=== PATIENT | female | born 1950 | race Caucasian/White ===

== ENCOUNTER 2016-05-12 10:49 | Inpatient (IN) | payer BC, OTHER ==
[~2016-05-12] VITALS: Ht 167.6 cm; Wt 74.8 kg
[2016-05-12 13:04] LABS: *AMPHETAMINE, URINE NEGATIVE (NEGATIVE); *BARBITURATE, URINE NEGATIVE (NEGATIVE); *CANNABINOID, URINE NEGATIVE (NEGATIVE); *COCCAINE, URINE NEGATIVE (NEGATIVE); *OPIATE, URINE NEGATIVE (NEGATIVE); *PHENCYCLIDINE SCREEN,URINE NEGATIVE (NEGATIVE)
[2016-05-12] MEDS ORDERED: LOPERAMIDE HCL 2 MG CAPSULE PO PRN ×2 (13:30)
[2016-05-12] MEDS ORDERED: THIAMINE HCL 200 MG/2 ML VIAL IM ONE (13:30)
[2016-05-12] MEDS ORDERED: DICYCLOMINE HCL 20 MG TABLET PO PRN (13:30)
[2016-05-12] MEDS ORDERED: LORAZEPAM 2 MG/1 ML VIAL IM PRN (13:30)
[2016-05-12] MEDS ORDERED: PROMETHAZINE HCL 25 MG/1 ML VIAL IM PRN (13:30)
[2016-05-12] MEDS ORDERED: IBUPROFEN 400 MG TABLET PO PRN (13:30)
[2016-05-12] MEDS ORDERED: LORAZEPAM 1 MG TABLET PO PRN ×2 (13:30)
[2016-05-12] MEDS ORDERED: MAG HYDROX/AL HYDROX/SIMETH 30 ML LIQUID UDC PO PRN (13:30)
[2016-05-12] MEDS ORDERED: MAGNESIUM HYDROXIDE 30 ML LIQUID UDC PO PRN (13:30)
[2016-05-12] MEDS ORDERED: MIRALAX 17 GM POWD.PACK PO PRN (13:30)
[2016-05-12] MEDS ORDERED: ONDANSETRON ODT 4 MG TAB.RAPDIS SL PRN (13:30)
[2016-05-12] MEDS ORDERED: diphenhydrAMINE 50 MG CAPSULE PO PRN (13:30)
[2016-05-12] MEDS ORDERED: GABA-534 PO (13:48)
[2016-05-12] MEDS ORDERED: PARO30TA3 PO (13:49)
[2016-05-12] MEDS ORDERED: LOSA1TAB39 PO (13:49)
[2016-05-12] MEDS ORDERED: SENN-18 PO (13:50)
[2016-05-12] MEDS ORDERED: NAPR220T66 PO (13:51)
[2016-05-12] MEDS: FOLIC ACID 1 MG TABLET PO SCH (13:52)
[2016-05-12] MEDS: HYDROXYZINE PAMOATE 25 MG CAPSULE PO PRN (13:52)
[2016-05-12] MEDS: CLONIDINE HCL 0.1 MG TABLET PO PRN (13:52)
--- NOTE | 2016-05-12 13:52 | NUR ---
PRN Medication Administered PRN Vistaril and Clonidine for CIWA 8 and BP of 179/120 and HR 85
[2016-05-12] MEDS ORDERED: SIME125C81 PO (13:57)
--- NOTE | 2016-05-12 14:00 | NUR ---
Admission Note VS: BP: 175/120 HR:85, SpO2: 98%, RR: 16, Temp: 98.8 Pain: 3/10 bilateral foot pain Height: 5'6" Weight: 165 LB Allergies: AARON Pt is a 65 y/o female admitted to [facility] on 05/12/16 at 1400. Pt is under the care of Dr. Grant for ETOH dependence. Pt denies suicidal and homicidal ideations at this time. Pt denies being hospitalized in the past 30 days. Pt denies Chest Pain and SOB. Pt reports using Gabapentin 600mg TID, Losartan 100-25mg 1 tab daily, Paxil, Naproxen and Sennosides. Upon assessment pt's skin is intact. CIWA is 6 upon admission. NKA, A/Ox4 and able to answer questions necessary for the admission process. Pt is Full Code. VS WNL, Regular Diet. Pt denies having seizures. Pt denies having a PCP. Breathing is even and unlabored, SpO2 is 98% on RA. Pt ambulates with a steady gait, pt reports feeling very anxious. Pt reports difficulty sleeping and staying asleep. Pt reports experiencing diarrhea on Tuesday and that was the last time she had a BM. Pt [facility]. Pt reports living with family. Hx of a Hysterectomy, Anxiety, Depression and R. elbow replacement. Pt refuses to get the Flu vaccine and PNA vaccine at this time. Pt does not smoke. Dr. Grant has been notified, and has placed client under observation. Pt has received Vistaril and Clonidine for the high blood pressure and anxiety. All needs have been met. Pt has been oriented to the room and the unit. All safety measures in place per hospital policy. Bed in lowest position, side rails up x2 and padded, call-light within reach. Will continue to monitor. Substance Abuse: ETOH: 2-3 gallons of wine during 2 day binge drinking, drinks 2-3x a month. Last Use: 05/09/16 1gallon of wine throughout the day starting at 10am.
[2016-05-12] MEDS ORDERED: BENZ28CR TP (14:01)
[2016-05-12] MEDS ORDERED: MICO30CR TP (14:07)
--- NOTE | 2016-05-12 14:30 | NUR ---
Medication Re-assessment and Administration Vistaril was not effective in reducing the anxiety, CIWA is 8 upon re-assessment. will administered Ativan 1mg for CIWA 8
[2016-05-12 14:44] LABS: BASOPHILS % (AUTO) 0.5 % (0.0-2.0); HEMATOCRIT 39.1 % (37.0-47.0); LYMPHOCYTES # (AUTO) 0.7 K/uL (0.8-4.8); LYMPHOCYTES % (AUTO) 9.4 % (20.5-51.5); MEAN CORPUSCULAR HEMOGLOBIN 31.1 uug (27.0-31.0); MEAN CORPUSCULAR HGB CONC 33 g/dL (32.0-37.0); MEAN CORPUSCULAR VOLUME 93.3 fL (81.0-99.0); MONOCYTES # (AUTO) 0.7 K/uL (0.1-1.30); MONOCYTES % (AUTO) 9.4 % (0.0-11.0); NEUTROPHILS # (AUTO) 6.3 K/uL (1.8-8.9); NEUTROPHILS % (AUTO) 80.7 % (38.5-71.5); PLATELET COUNT (AUTO) 305 K/uL (150-450); RED BLOOD CELL COUNT(AUTO) 4.19 MIL/uL (4.20-5.40); WHITE BLOOD COUNT (AUTO) 7.8 K/uL (4.0-11.2)
[2016-05-12] MEDS ORDERED: Medication Not On Formulary EA (Losartan/Hydrochlorothiazide (Losartan-Hctz 100-25 Mg Ta PO SCH (14:45)
[2016-05-12 14:51] LABS: ETHANOL < 3 MG/DL (0-0)
[2016-05-12 14:57] LABS: ALANINE AMINOTRANSFERASE 17 U/L (14-59); ALBUMIN 4.4 g/dL (3.4-5.0); ALKALINE PHOSPHATASE 120 U/L (50-136); AMYLASE 43 U/L (25-115); ASPARTATE AMINOTRANSFERASE 24 U/L (15-37); BILIRUBIN,TOTAL 0.8 mg/dL (0.2-1.0); CALCIUM 9.4 mg/dL (8.5-10.1); CARBON DIOXIDE 28 mmol/L (21-32); CHLORIDE 97 mmol/L (98-107); CREATININE 1.1 mg/dL (0.6-1.3); GFR 50 mL/min (>60); GLUCOSE 121 mg/dL (74-106); LIPASE 178 U/L (73-393); POTASSIUM 3.5 mmol/L (3.5-5.1); SODIUM SERUM 137 mmol/L (136-145); TOTAL PROTEIN, SERUM 7.6 g/dL (6.4-8.2); UREA NITROGEN, BLOOD 17 mg/dL (7-18)
[2016-05-12] MEDS ORDERED: GABAPENTIN 300 MG CAPSULE PO SCH (15:00)
[2016-05-12] MEDS: LOSARTAN POTASSIUM 50 MG TABLET PO SCH (15:02)
[2016-05-12] MEDS: HYDROCHLOROTHIAZIDE 25 MG TABLET PO SCH (15:02)
--- NOTE | 2016-05-12 15:05 | NUR ---
Ativan Re-assessment Medication was effective, CIWA 4 from CIWA 8.
[2016-05-12] MEDS: PAROXETINE HCL 20 MG TABLET PO SCH (15:24)
[2016-05-12 16:48] LABS: HIV-1 p24 ANTIGEN NON REACTIVE (NONREACTIVE); HIV-1/2 ANTIBODY NON REACTIVE (NONREACTIVE)
--- NOTE | 2016-05-12 19:11 | NUR ---
End of shift Endorsement given to nightshift nurse. Pt received PRN Ativan and Vistaril, Clonidine. Pt is a 65 y/o female admitted to [facility] on 05/12/16 at 1400. Pt is under the care of Dr. Grant for ETOH dependence. Pt denies suicidal and homicidal ideations at this time. Pt denies being hospitalized in the past 30 days. Pt denies Chest Pain and SOB. Pt reports using Gabapentin 600mg TID, Losartan 100-25mg 1 tab daily, Paxil, Naproxen and Sennosides. Upon assessment pt's skin is intact. CIWA is 6 upon admission. NKA, A/Ox4 and able to answer questions necessary for the admission process. Pt is Full Code. VS WNL, Regular Diet. Pt denies having seizures. Pt denies having a PCP. Breathing is even and unlabored, SpO2 is 98% on RA. Pt ambulates with a steady gait, pt reports feeling very anxious. Pt reports difficulty sleeping and staying asleep. Pt reports experiencing diarrhea on Tuesday and that was the last time she had a BM. Pt reports Hx of treatment in [facility] in 2013. Pt reports living with family. Hx of a Hysterectomy, Anxiety, Depression and R. elbow replacement. Pt refuses to get the Flu vaccine and PNA vaccine at this time. Pt does not smoke. Dr. Grant has been notified, and has placed client under observation. Pt has received Vistaril and Clonidine for the high blood pressure and anxiety. All needs have been met. Pt has been oriented to the room and the unit. All safety measures in place per hospital policy. Bed in lowest position, side rails up x2 and padded, call-light within reach. Will continue to monitor. Substance Abuse: ETOH: 2-3 gallons of wine during 2 day binge drinking, drinks 2-3x a month. Last Use: 05/09/16 1gallon of wine throughout the day starting at 10am.
[2016-05-12 20:00] VITALS: BP 116/63
--- NOTE | 2016-05-12 20:00 | NUR ---
START OF SHIFT NOTE PATIENT IS A 65 YEAR OLD MALE, ADMITTED FOR ETOH DEPENDENCE. PATIENT IS FULL CODE, ON 2 GRAM SODIUM DIET AND NO KNOWN ALLERGY. PATIENT DRINKS 2-3 GALLONS IN 2 DAYS 2-3X A MONTH FOR 14 YEARS LAST DRINK WAS 05/10/16 . PATIENT IS NOT ON TAPER, PRN MEDS AVAILABLE. SKIN INTACT. PATIENT WAS GIVEN PRN VISTARIL AND CLONIDINE DURING THE DAY. LAST CIWA 4. PATIENT ALERT AND ORIENTED X 4. RESPIRATION EVEN AND UNLABORED. PATIENT STATES SHE ANXIOUS, TIRED AND HE DID NOT SLEEP LAST NIGHT. PATIENT STATES SHE WANTS SOMETHING FOR SLEEP. ON FALL PRECAUTION. SAFETY MEASURES IN PLACE. CALL LIGHT IN REACH. WILL CONTINUE TO MONITOR.
[2016-05-12] MEDS: GABAPENTIN 300 MG CAPSULE PO SCH (20:53)
[2016-05-12] MEDS: SENNOSIDES 1 TABLET PO SCH (20:53)
[2016-05-12] MEDS: MAGNESIUM CHLORIDE 64 MG TABLET.SA PO SCH (20:54)
--- NOTE | 2016-05-12 20:54 | NUR ---
PRN BENADRYL ADMINISTRATION PATIENT REQUESTS FOR SLEEP AID. PRN BENADRYL GIVEN .WILL MONITOR FOR EFFECTIVENESS
--- NOTE | 2016-05-12 21:54 | NUR ---
PRN BENADRYL RE-ASSESSMENT PATIENT IN BED WITH EYES CLOSED. NO S/S OF DISTRESS. RESPIRATION EVEN AND UNLABORED. SAFETY MEASURES IN PLACE. CALL LIGHT IN REACH. WILL CONTINUE TO MONITOR.
[2016-05-13] VITALS: BP 120/65
[2016-05-13] MEDS: CLONIDINE HCL 0.1 MG TABLET PO PRN (03:19)
[2016-05-13] MEDS: HYDROXYZINE PAMOATE 25 MG CAPSULE PO PRN (03:19)
--- NOTE | 2016-05-13 03:19 | NUR ---
PRN VISTARIL/CLONIDINE ADMINISTRATION PATIENT STATES SHES ANXIOUS AND UNABLE TO STAY ASLEEP. PRN VISTARIL AND CLONIDINE GIVEN. WILL MONITOR FOR EFFECTIVENESS
[2016-05-13 04:00] VITALS: BP 114/74
--- NOTE | 2016-05-13 04:19 | NUR ---
PRN VISTARIL/CLONIDINE RE-ASSESSMENT PATIENT IN BED WITH EYES CLOSED. RESPIRATION EVEN AND UNLABORED. SAFETY MEASURES IN PLACE. CALL LIGHT IN REACH. WILL CONTINUE TO MONITOR.
--- NOTE | 2016-05-13 07:00 | NUR ---
Start of Shift Endorsement received from nightshift nurse. Pt is a 65 y/o female admitted for alcohol dependence. Pt has been placed under observation until farther evaluation by Dr. Grant. Pt is tolerating the detox;mildly at this time AEB CIWA 2 and reports sleeping 7 hours. Pt received PRN Benadryl, Vistaril and Clonidine. VS WNL, Full Code. PT is alert and oriented x4. Pt is in STABLE condition at this time. Remains compliant with medication and diet regimen. All needs have been met, All safety measures in place per hospital policy. Bed in lowest position, side rails up x2, call-light within reach. Will continue to monitor
--- NOTE | 2016-05-13 07:37 | NUR ---
END OF SHIFT NOTE PATIENT IS A 38 YEAR OLD MALE, ADMITTED FOR OPIATE/BENZO DEPENDENCE. PATIENT IS ON MODIFIED VALIUM AND SUBUTEX TAPER. PATIENT IS FULL CODE, REGULAR DIET AND ALLERGIC TO PENICILLIN. PATIENT REPORTS PMH OF ANXIETY AND DEPRESSION. SKIN INTACT. PATIENT ALERT AND ORIENTED X 4. RESPIRATION EVEN AND UNLABORED. PATENT REPORTS ANXIETY, SWEATING , NO N/V AND NECK PAIN /10. PATIENT STATES HE ATTENDED GROUPS , JUST MISSED ONE. ATE MEALS WITH GOOD APPETITE AND DRINKING FLUIDS WELL. ABDOMINAL ULTRASOUND WAS DONE IN AM. RESULT WAS MILD HEPATOMEGALY. DR. CABALLERO AWARE OF THE RESULT . PATIENT WAS GIVEN PRN TYLENOL AND MOTRIN DURING SHIFT. PATIENT COMPLIANT WITH MEDICATIONS AND TREATMENT PLAN. ON FALL PRECAUTION . SAFETY MEASURES IN PLACE. CALL LIGHT IN REACH. WILL CONTINUE TO MONITOR . SLEPT 6 HOURS. FLUID INTAKE 1,560 ML. VOIDED X 2 . NO BM. Addendum: 05/13/16 at 0737 by HALLEY STONE LVN ERROR CHARTING : FOR ANOTHER PATIENT
--- NOTE | 2016-05-13 07:37 | NUR ---
END OF SHIFT NOTE PATIENT IS A 65 YEAR OLD MALE, ADMITTED FOR ETOH DEPENDENCE. PATIENT IS FULL CODE, ON 2 GRAM SODIUM DIET AND NO KNOWN ALLERGY. PATIENT DRINKS 2-3 GALLONS IN 2 DAYS 2-3X A MONTH FOR 14 YEARS LAST DRINK WAS 05/10/16 . PATIENT IS NOT ON TAPER, PRN MEDS AVAILABLE. SKIN INTACT. PATIENT ALERT AND ORIENTED X 4. RESPIRATION EVEN AND UNLABORED. PATIENT STATES SHE ANXIOUS., TIRED AND STATES SHE DID NOT SLEEP LAST NIGHT. PATIENT STATES SHE WANTS SOMETHING FOR SLEEP. PATIENT WAS GIVEN PRN BENADRYL , VISTARIL AND CATAPRES GIVEN. PATIENT COMPLIANT WITH MEDICATION AND TREATMENT PLAN. ON FALL PRECAUTION. SAFETY MEASURES IN PLACE. CALL LIGHT IN REACH. WILL CONTINUE TO MONITOR. SLEPT 7 HOURS. FLUID INTAKE 500 ML. VOIDED X 1. NO BM. Addendum: 05/13/16 at 0739 by HALLEY STONE LVN PATIENT IS A 65 YEAR OLD FEMALE
[2016-05-13 08:00] VITALS: BP 122/69
[2016-05-13] MEDS: MULTIVITAMINS,THERAPEUTIC TABLET PO SCH (08:27)
[2016-05-13] MEDS: GABAPENTIN 300 MG CAPSULE PO SCH ×3 (08:27→20:56)
[2016-05-13] MEDS: FOLIC ACID 1 MG TABLET PO SCH (08:27)
[2016-05-13] MEDS: DOCUSATE SODIUM 250 MG CAPSULE PO SCH (08:27)
[2016-05-13] MEDS: MAGNESIUM CHLORIDE 64 MG TABLET.SA PO SCH ×2 (08:27→20:56)
[2016-05-13] MEDS: PAROXETINE HCL 20 MG TABLET PO SCH (08:28)
[2016-05-13] MEDS: HYDROCHLOROTHIAZIDE 25 MG TABLET PO SCH (08:28)
[2016-05-13] MEDS: THIAMINE HCL 100 MG TABLET PO SCH (08:28)
[2016-05-13] MEDS: LOSARTAN POTASSIUM 50 MG TABLET PO SCH (08:28)
[2016-05-13] MEDS ORDERED: TUBERCULIN,PURIF.PROT.DERIV. 5 TU/0.1 ML TEST ID ONE (09:00)
[2016-05-13 12:00] VITALS: BP 136/87
[2016-05-13] MEDS: ACETAMINOPHEN 325 MG TABLET PO PRN ×2 (12:06→22:25)
--- NOTE | 2016-05-13 12:28 | NUR ---
PRN Medication Administered PRN Tylenol for 6/10 headache.
--- NOTE | 2016-05-13 13:00 | NUR ---
Medication Assessment Medication was effective, pt reports 2/10 headache upon re-assessment.
[2016-05-13 16:00] VITALS: BP 128/82
[2016-05-13] MEDS ORDERED: HYDR-3895 PO (17:59)
[2016-05-13] MEDS ORDERED: CLON0.1T14 PO (17:59)
--- NOTE | 2016-05-13 19:05 | NUR ---
End of Shift Endorsement given to nightshift nurse. Pt is a 65 y/o female admitted for alcohol dependence. Pt has been placed under observation until farther evaluation by Dr. Grant. Pt is tolerating the detox;mildly at this time AEB CIWA 2. Pt will be discharged on 05/14/16, all documentation has been completed. Pt reports readiness for discharge. Pt received PRN Tylenol, medication was effective. VS WNL, Full Code. Intake: 1300ml, Void x3, BM x0. PT is alert and oriented x4. Pt is in STABLE condition at this time. Remains compliant with medication and diet regimen. All needs have been met, All safety measures in place per hospital policy. Bed in lowest position, side rails up x2, call-light within reach. Will continue to monitor
--- NOTE | 2016-05-13 19:25 | NUR ---
START OF SHIFT NOTE Received report from day shift nurse. Pt is 65 y o female, admitted on 05/12/16 for ETOH dependence. Pt reported drinking 2-3 gallons of wine in 2-3 days periods 2-3 times a month. Pt scheduled for discharge on 05/14/16. Pt in room, aaox4. Pt reports mild anxiety, educate don relaxation techniques (deep breathing), verbalized understanding. Skin intact, warm, with mild sweating noted. No tremors observed, pt denies tingling/ burning/ itching. Lung sounds clear bilat, heart rate regular. Pt denies n/v, last BM 05/13/16. Pt denies urinary difficulties. Pt denies pain at this time. PMH of anxiety, depression, hysterectomy, elbow replacement. Pt is full code, regular diet, NKA. Pt is on fall precautions. Side rails up x 2, call light within reach, bed locked in lowest position. Will continue with plan of care.
[2016-05-13 20:00] VITALS: BP 132/74
[2016-05-13] MEDS: SENNOSIDES 1 TABLET PO SCH (20:56)
[2016-05-13 21:43] LABS: *AMPHETAMINE, URINE NEGATIVE (NEGATIVE); *BARBITURATE, URINE NEGATIVE (NEGATIVE); *CANNABINOID, URINE NEGATIVE (NEGATIVE); *COCCAINE, URINE NEGATIVE (NEGATIVE); *OPIATE, URINE NEGATIVE (NEGATIVE); *PHENCYCLIDINE SCREEN,URINE NEGATIVE (NEGATIVE)
--- NOTE | 2016-05-13 22:25 | NUR ---
PRN TYLENOL Pt c/o headache 05/24. Administered prn Tylenol PO as ordered. Safety precautions in place, will continue to monitor
--- NOTE | 2016-05-13 23:00 | NUR ---
REASSESSMENT Pt resting with eyes closed. RR unlabored. Will continue to monitor
--- NOTE | 2016-05-14 | NUR ---
VS, CIWA Pt refused VS and CIWA assessment, state she wants to sleep and not to be bothered. Pt asleep, RR even and unlabored at 17 breaths per minute. Side rails up x 2, call light within reach, bed locked in lowest position. Will continue to monitor Addendum: 05/14/16 at 0604 by SUJIT SMITH RN Amended: Links added.
[2016-05-14 03:06] LABS: HCV AB <0.1 s/co ratio (0.0-0.9); HEPATITIS B CORE AB, IgM Negative (Negative); HEPATITIS B SURFACE AG Negative (Negative)
--- NOTE | 2016-05-14 04:00 | NUR ---
VS, CIWA Pt refused VS and CIWA assessment, state she wants to sleep and not to be bothered. Pt asleep, RR even and unlabored at 16 breaths per minute. Side rails up x 2, call light within reach, bed locked in lowest position. Will continue to monitor Addendum: 05/14/16 at 0604 by SUJIT SMITH RN Amended: Links added.
--- NOTE | 2016-05-14 07:20 | NUR ---
Start of shift note SBAR report rcv'd. Pt was admitted for ETOH dependence. Pt has a PMH of anxiety, depression, hysterectomy and a R elbow replacement. Pt is stable at this time. Pt did not require a taper. All needs addressed at this time. Will continue to monitor pt. Pt is scheduled to discharge today.
--- NOTE | 2016-05-14 07:45 | NUR ---
END OF SHIFT NOTE Pt is 65 y o female, admitted on 05/12/16 for ETOH dependence. Pt reported drinking 2-3 gallons of wine in 2-3 days periods 2-3 times a month. Pt scheduled for discharge on 05/14/16. UDS collected and resulted, discharge orders in chart. Pt reported mild anxiety and sweating as s/s of withdrawal, last CIWA = 2 at 2000, VSS. Pt received prn Tylenol at 2225 for headache, was effective. Pt slept for 6 hrs. PMH of anxiety, depression, hysterectomy, elbow replacement. Pt is full code, regular diet, NKA. Pt is on fall precautions. Report endorsed to day shift nurse.
[2016-05-14 08:00] VITALS: BP 124/64
[2016-05-14] MEDS: GABAPENTIN 300 MG CAPSULE PO SCH (08:25)
[2016-05-14] MEDS: LOSARTAN POTASSIUM 50 MG TABLET PO SCH (08:25)
[2016-05-14] MEDS: PAROXETINE HCL 20 MG TABLET PO SCH (08:25)
[2016-05-14] MEDS: MULTIVITAMINS,THERAPEUTIC TABLET PO SCH (08:25)
[2016-05-14] MEDS: ACETAMINOPHEN 325 MG TABLET PO PRN (08:25)
[2016-05-14 08:26] VITALS: BP 124/79
[2016-05-14] MEDS: DOCUSATE SODIUM 250 MG CAPSULE PO SCH (08:26)
[2016-05-14] MEDS: FOLIC ACID 1 MG TABLET PO SCH (08:26)
[2016-05-14] MEDS: HYDROCHLOROTHIAZIDE 25 MG TABLET PO SCH (08:26)
[2016-05-14] MEDS: MAGNESIUM CHLORIDE 64 MG TABLET.SA PO SCH (08:26)
[2016-05-14] MEDS: THIAMINE HCL 100 MG TABLET PO SCH (08:26)
--- NOTE | 2016-05-14 08:30 | NUR ---
PRN administration Pt c/o a headache 06/23. Administered tylenol PRN. Will continue to monitor pt.
--- NOTE | 2016-05-14 09:30 | NUR ---
Reassessment Pt states that her headache has been relieved. Pt states her pain level is 0/10.
--- NOTE | 2016-05-14 10:02 | NUR ---
Discharge note Pt was admitted for ETOH dependence. Pt states that she feels ready for discharge. Pt VS are WNL. Pt has a CIWA of 2. Pt LBM was 05/13/16. Denies SI/HI. Pt verbalized her understanding of the discharge instructions. All needs addressed at this time. Pt prescriptions, medications, discharge instructions and belongings all returned to pt. Pt ID band removed. Pt ambulated off with [employer], left facility via [facility] for [facility] to change.
== END 2016-05-14 10:02 | disposition other institution (70) | DRG 895 ==
LOC: SRC 11:11
PROVIDERS: ADMIT Internal Medicine; ATTEND Internal Medicine
PROC: HZ2ZZZZ Detoxification Services for Substance Abuse Treatment (ICD-10-PCS; principal; 2016-05-12)
PROC: HZ41ZZZ Group Counseling for Substance Abuse Treatment, Behavioral (ICD-10-PCS; 2016-05-13)
DX: F10.230 Alcohol dependence with withdrawal, uncomplicated (principal); F33.2 Major depressive disorder, recurrent severe without psychotic features; G62.1 Alcoholic polyneuropathy; Y90.9 Presence of alcohol in blood, level not specified; Z85.43 Personal history of malignant neoplasm of ovary; Z92.21 Personal history of antineoplastic chemotherapy; Z87.81 Personal history of (healed) traumatic fracture; Z62.810 Personal history of physical and sexual abuse in childhood; F43.10 Post-traumatic stress disorder, unspecified; F17.210 Nicotine dependence, cigarettes, uncomplicated; I10 Essential (primary) hypertension; Z79.899 Other long term (current) drug therapy
CPT/HCPCS: 36415; 70030-TC; 71010; 80307; 83690; 83735; 84443; 85025; 86592; 86705; 86803; 87340; 87806; A4663; G6040-TC; J3411; Q0163